=== PATIENT | male | born 1990 | race African-American/Black ===

== ENCOUNTER 2016-05-25 11:26 | Emergency (ER) | payer MEDICAID ==
[~2016-05-25] VITALS: Ht 170.2 cm; Wt 97.1 kg
[2016-05-25 11:44] VITALS: BP 126/71
== END 2016-05-25 12:08 | disposition home or self-care (01) ==
LOC: ER 11:28
DX: K21.9 Gastro-esophageal reflux disease without esophagitis (principal)
CPT/HCPCS: 93005; 99283; A4606; Z7610

== ENCOUNTER 2016-10-26 22:07 | Emergency (ER) | payer MEDICAID ==
[~2016-10-26] VITALS: Ht 180.3 cm; Wt 95.3 kg
--- NOTE | 2016-10-26 22:10 | NUR ---
"LOWER BACK PAIN X2 DAYS; WORSE TODAY WHEN I TURNED; FELT A POP". AWAITING MD ORDER. PLACED ON A GOWNED PT COMFORTABLE AT THIS TIME
--- NOTE | 2016-10-26 22:35 | NUR ---
DR MARADIAGA AT [facility] FOR EVAL
[2016-10-26] MEDS ORDERED: IBUPROFEN 400 MG TABLET ONE (22:37)
[2016-10-26] MEDS ORDERED: BUPIVACAINE 0.5 % PF 150 MG/30 ML VIAL ONE (22:37)
[2016-10-26] MEDS ORDERED: BUPIVACAINE 0.5 % PF 150 MG/30 ML VIAL IJ ONE (23:00)
[2016-10-26] MEDS ORDERED: IBUPROFEN 400 MG TABLET PO ONE (23:00)
--- NOTE | 2016-10-26 23:24 | NUR ---
GAVE REPORT TO ROSELYN FOR NICKY
--- NOTE | 2016-10-27 00:17 | NUR ---
pt ok to discharge per dr felix. Patient discharged to home in stable condition. Written and verbal after care instructions given. Patient verbalizes understanding of instruction.Patient is awake and alert to self, day, and place. pt ambulatory with a steady gait
[2016-10-27 00:18] VITALS: BP 134/81
== END 2016-10-27 00:20 | disposition home or self-care (01) ==
LOC: ER 22:07
DX: S39.012A Strain of muscle, fascia and tendon of lower back, initial encounter (principal); X58.XXXA Exposure to other specified factors, initial encounter; Y92.89 Other specified places as the place of occurrence of the external cause; Y93.89 Activity, other specified; Y99.8 Other external cause status
CPT/HCPCS: 20552; 99284; A4606; J3490; Z7610